=== PATIENT | female | born 1995 | race African-American/Black ===

== ENCOUNTER → 2016-10-18 | Outpatient (CLI) | payer OTHER ==
--- NOTE | 2016-10-18 11:46 | REP ---
Cervical spine seven views: There are no comparisons. Vertebral body heights, interspacing alignment are normal. The facets are normally aligned. Prevertebral soft tissues are normal. There is no listhesis on flexion or extension. There is no bony foraminal encroachment. The odontoid view is unremarkable. I suspect there are bilateral cervical ribs. This could be confirmed with a PA view of the chest. Impression: Negative cervical spine except for questionable bilateral cervical ribs. This could be confirmed with a PA view of the chest. Signed by Rohan Bryan MD 10/18/2016 11:37 A
--- NOTE | 2016-10-18 11:48 | REP ---
Lumbar spine seven views including lateral views in flexion and extension. Vertebral body heights, interspacing alignment are normal. There is no spondylolysis. There is no spondylolisthesis. There is no listhesis on the lateral views with flexion or extension. The facets, pedicles and sacroiliac articulations are unremarkable. Impression: Essentially negative lumbar spine. Signed by Rohan Bryan MD 10/18/2016 11:40 A
== END ==
LOC: M RAD 09:44
PROVIDERS: ATTEND Neurological Surgery
DX: M47.892 Other spondylosis, cervical region (principal); M47.896 Other spondylosis, lumbar region

== ENCOUNTER → 2016-10-24 | Outpatient (CLI) | payer OTHER ==
[~2016-10-24] MED LIST: METHACHOLINE KIT (J7674) INH ONE
--- NOTE | 2016-10-24 08:27 | PFTRPT ---
Site: [facility], [address] [place], [address] ID: [id number] Name: ANNETTE HUFF Doctor: Alexandra Nesbitt MD Tech: Arlette CADENA RRT Age: 20 Sex: Female Race: Black Height: 64.25 Inches Weight: 159.00 Lbs BSA: 1.78 Diagnosis: R05 of albuterol for postbronchodilator. Pre-Bronch Post-Bronch Pred Actual %Pred Actual %Chng SPIROMETRY FVC (L) 3.32 2.47 74 2.75 11 FEV1 (L) 2.94 2.33 79 2.48 6 FEV1/FVC (%) 88 94 107 90 -4 FEF 25% (L/sec) 5.97 5.73 95 5.84 1 FEF 50% (L/sec) 4.79 4.04 84 4.80 18 FEF 75% (L/sec) 2.13 1.63 76 2.17 33 FEF 25-75% (L/sec) 3.61 3.29 91 3.95 19 FEF Max (L/sec) 6.97 5.77 82 5.83 1 FIVC (L) 1.62 2.33 43 FIF 50% (L/sec) 4.29 3.33 77 2.98 -10 FIF Max (L/sec) 3.50 3.07 -12
== END ==
LOC: M CARPUL 07:43
PROVIDERS: ATTEND Internal Medicine Pulmonary Disease
DX: R05 Cough (principal)
CPT/HCPCS: J7674 ×3

== ENCOUNTER 2017-01-13 01:10 | Emergency (ER) | payer OTHER ==
[~2017-01-13] VITALS: Ht 165.1 cm; Wt 73.0 kg
[2017-01-13] MEDS ORDERED: ALBU83IN INH (01:39)
[2017-01-13] MEDS ORDERED: ADV250INH INH (01:39)
[2017-01-13] MEDS ORDERED: FLUO20CA8 PO (01:39)
[2017-01-13] MEDS ORDERED: METAL LOCK LOOP XX ONE (02:59)
[2017-01-13 03:45] VITALS: BP 125/68
== END 2017-01-13 03:46 | disposition home or self-care (01) ==
LOC: EDBD 01:10 → M ED 01:10
DX: J45.909 Unspecified asthma, uncomplicated (principal); F41.9 Anxiety disorder, unspecified; F32.9 Major depressive disorder, single episode, unspecified; Z79.51 Long term (current) use of inhaled steroids; Z79.899 Other long term (current) drug therapy

== ENCOUNTER → 2017-01-15 | Outpatient (CLI) | payer OTHER ==
[~2017-01-15] MED LIST changes: +ADV250INH INH; +ALBU83IN INH; +FLUO20CA8 PO; -METHACHOLINE KIT (J7674) INH ONE
--- NOTE | 2017-01-16 19:26 | ECHO ---
DATE OF PROCEDURE: 01/15/2017 REFERRING PHYSICIAN: Dr. Shea. Study was performed on outpatient basis. INDICATIONS: Chest pain and hypertension. HEIGHT: 165 cm WEIGHT: 71 kg DIMENSIONS: IVS: 1.0 LV: 4.4 LVPW: 1.0 LA: 2.8 AORTA: 2.2 FINDINGS: The study is of good technical quality. Left ventricle is of normal size and systolic function with estimated LVEF 65-70%. Right ventricle is also normal size and systolic function. Both atria appear normal. All four cardiac valves were well seen and appear normal. No pericardial effusion is present. Inferior vena cava is normal size. Aortic root, aortic arch and abdominal aorta appear normal. Doppler interrogation reveals no aortic stenosis or insufficiency. There is trace mitral and trace tricuspid insufficiency. Calculated pulmonary artery pressure is within normal limits. Pulmonic valve is functionally competent. Mitral inflow pattern and tissue Doppler imaging of mitral annulus revealed normal diastolic functional left ventricle. CONCLUSIONS: 1. Study is of good technical quality. 2. Normal LV size, systolic and diastolic function. 3. No significant valvular disease. 4. Normal central venous pressure and probably normal pulmonary artery pressure. 5. Essentially normal echocardiograms COMMENT: Subacute bacterial endocarditis is not recommended. MTDD
== END ==
LOC: M CARPUL 08:50
PROVIDERS: ATTEND Internal Medicine
DX: I10 Essential (primary) hypertension (principal); R07.9 Chest pain, unspecified